=== PATIENT | female | born 1975 | race African-American/Black ===

== ENCOUNTER → 2017-06-10 09:39 | Outpatient (CLI) | payer OTHER ==
[2014-11-18 21:13] VITALS: BMI 23.2
[~2017-06-10 09:39] MED LIST: ELAVIL25 MG PO; FERRETTS324 MG PO; KLOR-CON M2020 MEQ PO; LYRICA25 MG PO; SUMATRIPTAN SUC25 MG PO
== END | disposition home or self-care (01) ==
LOC: D.RAD 09:39
DX: R05 Cough (principal)

== ENCOUNTER 2018-07-17 18:45 | Emergency (ER) | payer BC, MEDICARE ==
[~2018-07-17] VITALS: Ht 162.6 cm; Wt 72.7 kg
[2018-07-17 19:00] VITALS: Ht 162.6 cm; Wt 72.7 kg
[2018-07-17] MEDS ORDERED: LYRICA150 MG PO (19:01)
[2018-07-17] MEDS ORDERED: CYCLOBENZAPRINE10 MG PO (19:02)
[2018-07-17] MEDS ORDERED: ATARAX 25 MG TA25 MG (19:02)
[2018-07-17 19:24] LABS: BASOPHILS 0.1 % (0-2); EOSINOPHILS 0.7 % (0-7); HEMATOCRIT 37.2 % (36.0-48.0); IMMATURE GRANULOCYTES 0.3 % (0-5); LYMPHOCYTES 16.4 % (15-50); MCH 29.6 pg (26.0-34.0); MCHC 32.3 g/dL (31.0-37.0); MCV 91.9 fL (80.0-100.0); MEAN PLATELET VOLUME 9.5 fL (7.4-10.4); MONOCYTES 8.3 % (2-11); NEUTROPHILS 74.2 % (40-80); PLATELET COUNT 329 10x3/uL (130-400); RBC 4.05 10x6/uL (4.00-5.40); RDW 14.6 % (11.5-14.5)
[2018-07-17 19:38] LABS: ALBUMIN 2.8 g/dL (3.4-5.0); ANION GAP 9.5 mmol/L (8-16); BILIRUBIN - TOTAL 0.74 mg/dL (0.2-1.3); CALCIUM 8.1 mg/dL (8.5-10.1); CARBON DIOXIDE 26.6 mmol/L (21.0-32.0); CREATININE - SERUM 0.9 mg/dL (0.6-1.3); POTASSIUM - SERUM 3.1 mmol/L (3.5-5.1); PROTEIN - SERUM 6.7 g/dL (6.4-8.2)
[2018-07-17] MEDS ORDERED: POTASSIUM CHLO20 MEQ PO (20:17)
[2018-07-17 20:33] VITALS: BP 111/66
== END 2018-07-17 20:35 | disposition home or self-care (01) ==
LOC: D.ER 18:45
PROVIDERS: Emergency Medicine
DX: R53.1 Weakness (principal); E87.6 Hypokalemia; R53.83 Other fatigue; R00.2 Palpitations